=== PATIENT | female | born 1930 | race African-American/Black ===

== ENCOUNTER 2019-01-29 18:52 | Emergency (ER) | payer OTHER ==
[2019-01-29 19:08] VITALS: BMI 20.7
--- NOTE | 2019-01-29 19:37 | PDOC ---
History of Present Illness - General Chief Complaint: Rectal Bleed Stated Complaint: HEMORRHOIDS Time Seen by Provider: 01/29/19 19:36 History Source: Patient, Family Exam Limitations: No Limitations - History of Present Illness Initial Comments: 88 year old female with PMH HTN presented to ED for rectal bleeding today. Pt reported she was feeling constipated today with generalized abdominal cramping then had a bowel movement with blood mixed in the stool. Pt reported she had another bowel movement with stool, prompting her to come to the Emergency Department. Pt is unaware if she has rectal hemorrhoids. Pt reported last colonoscopy was >10 years ago, but was normal. Past History - Past Medical History Allergies/Adverse Reactions: Allergies Allergy/AdvReac Type Severity Reaction Status Date / Time No Known Allergies Allergy Verified 01/29/19 21:34 Home Medications: Ambulatory Orders Aspirin 81 mg PO DAILY 01/29/19 Multivit with Calcium,Iron,Min [One Daily Women's] 1 each PO DAILY 01/29/19 - Suicide/Smoking/Psychosocial Hx Smoking History: Never smoked Review of Systems - Review of Systems Able to Perform ROS?: Yes Constitutional: No: Chills, Fever HEENTM: No: Recent change in vision, Throat Pain Respiratory: No: Cough, Shortness of Breath Cardiac (ROS): No: Chest Pain, Palpitations, Syncope ABD/GI: Yes: Constipated, Rectal Bleeding, Abdominal cramping. No: Diarrhea, Vomiting : No: Dysuria, Discharge, Hematuria Musculoskeletal: No: Joint Pain, Joint Swelling *Physical Exam - Vital Signs Last Vital Signs Temp Pulse Resp BP Pulse Ox 98.5 F 83 19 138/92 100 01/29/19 19:06 01/29/19 19:06 01/29/19 19:06 01/29/19 19:06 01/29/19 19:06 - Physical Exam General Appearance: Yes: Nourished, Appropriately Dressed. No: Apparent Distress HEENT: positive: EOMI, ZA Neck: positive: Trachea midline. negative: Tender Respiratory/Chest: positive: Lungs Clear, Normal Breath Sounds. negative: Respiratory Distress, Accessory Muscle Use, Rales, Rhonchi, Wheezing Cardiovascular: positive: Regular Rhythm, Regular Rate. negative: Murmur Rectal Exam: positive: normal rectal tone, heme positive stool, hemorrhoids Musculoskeletal: positive: Normal Inspection Extremity: positive: Normal Capillary Refill, Normal Inspection, Normal Range of Motion Integumentary: positive: Normal Color, Dry, Warm Neurologic: positive: associate product integrity engineer II-XII NML intact, Fully Oriented, Alert, Normal Mood/ Affect, Normal Response ED Treatment Course - LABORATORY CBC & Chemistry Diagram: 01/29/19 19:55 01/29/19 19:55 Medical Decision Making - Medical Decision Making 01/29/19 19:58 88 year old female with above PMH presented to ED for rectal bleeding. Initial Vital Signs Temp Pulse Resp BP Pulse Ox 98.5 F 83 19 138/92 100 01/29/19 19:06 01/29/19 19:06 01/29/19 19:06 01/29/19 19:06 01/29/19 19:06 Afebrile. No tachycardia. No tachypnea. Mild hypertension. No hypoxia on room air. Labs ordered: CBC, CMP, stool for blood, lactate. Imaging ordered: none Medications ordered: none 01/29/19 20:38 Laboratory Last Values WBC 3.6 K/mm3 (4.0-10.0) L 01/29/19 19:55 RBC 3.77 M/mm3 (3.60-5.2) 01/29/19 19:55 Hgb 12.4 GM/dL (10.7-15.3) 01/29/19 19:55 Hct 36.6 % (32.4-45.2) 01/29/19 19:55 MCV 97.0 fl (80-96) H 01/29/19 19:55 MCH 32.8 pg (25.7-33.7) 01/29/19 19:55 MCHC 33.8 g/dl (32.0-36.0) 01/29/19 19:55 RDW 13.6 % (11.6-15.6) 01/29/19 19:55 Plt Count 172 K/MM3 (134-434) 01/29/19 19:55 MPV 9.2 fl (7.5-11.1) 01/29/19 19:55 Absolute Neuts (auto) 2.2 K/mm3 (1.5-8.0) 01/29/19 19:55 Neutrophils % 59.2 % (42.8-82.8) 01/29/19 19:55 Lymphocytes % 29.0 % (8-40) 01/29/19 19:55 Monocytes % 10.7 % (3.8-10.2) H 01/29/19 19:55 Eosinophils % 0.7 % (0-4.5) 01/29/19 19:55 Basophils % 0.4 % (0-2.0) 01/29/19 19:55 Nucleated RBC % 0 % (0-0) 01/29/19 19:55 PT with INR 11.50 SEC (9.7-13.0) 01/29/19 19:55 INR 0.97 (0.83-1.09) 01/29/19 19:55 Stool Occult Blood Positive (NEGATIVE) 01/29/19 19:55 Mild leukopenia, no prior to compare. No anemia. No thrombocytopenia. Stool positive for blood. 01/29/19 21:11 CMP Sodium 140 mmol/L (136-145) 01/29/19 19:55 Potassium 4.6 mmol/L (3.5-5.1) 01/29/19 19:55 Chloride 104 mmol/L (98-107) 01/29/19 19:55 Carbon Dioxide 30 mmol/L (21-32) 01/29/19 19:55 Anion Gap 7 MMOL/L (8-16) L 01/29/19 19:55 BUN 17.6 mg/dL (7-18) 01/29/19 19:55 Creatinine 1.1 mg/dL (0.55-1.3) 01/29/19 19:55 Est GFR (CKD-EPI)AfAm 51.91 01/29/19 19:55 Est GFR (CKD-EPI)NonAf 44.79 01/29/19 19:55 Random Glucose 96 mg/dL (74-106) 01/29/19 19:55 Lactic Acid 1.2 mmol/L (0.4-2.0) 01/29/19 19:55 Calcium 10.5 mg/dL (8.5-10.1) H 01/29/19 19:55 Total Bilirubin 0.6 mg/dL (0.2-1) 01/29/19 19:55 AST 16 U/L (15-37) 01/29/19 19:55 ALT 13 U/L (13-61) 01/29/19 19:55 Alkaline Phosphatase 42 U/L (45-117) L 01/29/19 19:55 Total Protein 7.3 g/dl (6.4-8.2) 01/29/19 19:55 Albumin 4.2 g/dl (3.4-5.0) 01/29/19 19:55 No electrolyte abnormalities. No [place]. No transaminitis. No lactic acidosis. 01/29/19 21:59 Vital Signs Temperature 97.8 F 01/29/19 21:57 Pulse Rate 65 01/29/19 21:57 Respiratory Rate 18 01/29/19 21:57 Blood Pressure 152/62 01/29/19 21:57 O2 Sat by Pulse Oximetry (%) 100 01/29/19 21:57 Bleeding not significant enough to cause anemia, tachycardia or hypotension. Hemorrhoids may be cause of bleeding, but blood is mixed in stool, pt is advised to have outpatient colonoscopy. Pt and family given return precautions, GI F/U. Pt stable for discharge. Discharge medications: none *DC/Admit/Observation/Transfer Diagnosis at time of Disposition: Hemorrhoid, Rectal bleeding - Discharge Dispostion Disposition: HOME Condition at time of disposition: Stable Decision to Admit order: No - Referrals Referrals: Allen Presley MD [Staff Physician] - Priscilla Gimenez MD [Staff Physician] - Rik Shane MD [Staff Physician] - Brian Childress DO [Staff Physician] - - Patient Instructions Printed Discharge Instructions: DI for Hemorrhoids, DI for Rectal Bleeding Additional Instructions: You were seen today for rectal bleeding. You have rectal hemorrhoids, which could be the cause of your bleeding, but you need to have a colonoscopy performed outpatient to rule out bleeding from the colon. You are due for a colonoscopy for cancer screening as well. Drink lots of water throughout the day to avoid constipation. Eat lots of food high in fiber. Follow up with your primary care doctor within 3 days. Your care is not complete until you follow up. Follow up with a dray truck driver within 5 days. Your care is not complete until you follow up. I have provided you with multiple referrals. Return to the Emergency Department for increasing bleeding, chest pain, lightheadedness, increasing abdominal pain, vomiting, vomiting blood, or any other new, worsening or concerning symptoms. - Post Discharge Activity
[2019-01-29 20:20] LABS: BASO % 0.4 % (0-2.0); EOS % 0.7 % (0-4.5); HEMATOCRIT 36.6 % (32.4-45.2); HEMOGLOBIN 12.4 GM/dL (10.7-15.3); MCH 32.8 pg (25.7-33.7); MCHC 33.8 g/dl (32.0-36.0); MEAN PLT VOLUME 9.2 fl (7.5-11.1); MONO % 10.7 % (3.8-10.2); NEUT % 59.2 % (42.8-82.8); PLATELET COUNT 172 K/MM3 (134-434); RBC 3.77 M/mm3 (3.60-5.2); RDW 13.6 % (11.6-15.6); WHITE BLOOD COUNT 3.6 K/mm3 (4.0-10.0)
[2019-01-29 20:34] LABS: INR 0.97 (0.83-1.09); PROTHROMBIN TIME (PATIENT) 11.5 SEC (9.7-13.0)
[2019-01-29 20:47] LABS: ALBUMIN 4.2 g/dl (3.4-5.0); BILIRUBIN,TOTAL 0.6 mg/dL (0.2-1); BLOOD UREA NITROGEN 17.6 mg/dL (7-18); CALCIUM 10.5 mg/dL (8.5-10.1); CREATININE 1.1 mg/dL (0.55-1.3); POTASSIUM 4.6 mmol/L (3.5-5.1); TOT PROT 7.3 g/dl (6.4-8.2)
--- NOTE | 2019-01-29 21:09 | PDOC ---
Documentation entered by Kavya Garcia SCRIBE, acting as scribe for Trena Choudhury MD. Trena Choudhury MD: This documentation has been prepared by the Jose serrato Mackenzie, SCRIBE, under my direction and personally reviewed by me in its entirety. I confirm that the documentation accurately reflects all work , treatment, procedures, and medical decision making performed by me. Attending Attestation - Resident Resident Name: JarettGeorgie - ED Attending Attestation I have performed the following: I have examined & evaluated the patient, The case was reviewed & discussed with the resident, I agree w/resident's findings & plan - HPI HPI: The patient is an 88 year old female, with a significant PMH of HTN who presents to the emergency department with rectal bleeding starting today. Patient states she felt constipated today and then when she went to the bathroom for the first time she noticed bright red blood in her stool. Patient states she is keeping a towel underneath her because she is continually bleeding. The patient denies chest pain, shortness of breath, headache and dizziness. Denies fever, chills, nausea, and vomiting. Denies dysuria, frequency, urgency and hematuria. Allergies: NKDA 01/29/19 20:25 - Physicial Exam PE: GENERAL: The patient is in no acute distress. ENT: Ears normal, nares patent, oropharynx clear without exudates. Moist mucous membranes. NECK: Normal range of motion, supple, no nuchal rigidity LUNGS: Breath sounds equal, clear to auscultation bilaterally. No wheezes, and no crackles. HEART: Regular rate and rhythm, normal S1 and S2 without murmur, rub or gallop. ABDOMEN: Soft, nontender, normoactive bowel sounds. No guarding, no rebound. No masses palpable. EXTREMITIES: Normal range of motion, no edema. NEUROLOGICAL: Cranial nerves II through XII grossly intact. Normal speech. No focal neurological deficits. SKIN: Warm, Dry, normal turgor, no rashes or lesions noted. 01/29/19 20:26 - Medical Decision Making 01/29/19 20:52 Ms. Naik is an 88 yo F who presents to the Er with a complaint of rectal bleeding Pt reports that she has been constipated She then had a bowel movement with blood mixed in the stool. No melena Pt reported last colonoscopy was >10 years ago, but was normal. Pt no longer has abdominal pain/cramping DD: Bleeding hemorrhoid, Anal tear, AVM Will do: Labs Rectal exam Re Assess 01/29/19 21:09 Laboratory Tests 01/29/19 01/29/19 01/29/19 19:55 19:55 19:55 WBC 3.6 L Hgb 12.4 Hct 36.6 Plt Count 172 INR 0.97 BUN 17.6 Creatinine 1.1 Stool Occult Blood 01/29/19 19:55 WBC Hgb Hct Plt Count INR BUN Creatinine Stool Occult Blood Positive Will plan to discharge to home Pt to follow up with GI/pmd
[2019-01-29 22:00] VITALS: BP 152/62; PULSE 65; TEMP 97.8
== END 2019-01-29 21:57 | disposition home or self-care (01) ==
LOC: JER 18:52
DX: K64.9 Unspecified hemorrhoids (principal); K62.5 Hemorrhage of anus and rectum; I10 Essential (primary) hypertension
CPT/HCPCS: 36415; 80053; 82272; 83605; 85025; 85610; 85730; 86850; 86900; 86901; 99283-25